=== PATIENT | female | born 1990 | race African-American/Black ===

== ENCOUNTER 2021-07-23 23:03 | Emergency (ER) | payer BC ==
[~2021-07-23] VITALS: Ht 175.3 cm; Wt 114.0 kg
[2021-07-24] MEDS ORDERED: ONDANSETRON HCL 4MG/2ML INJ IV ONE (00:30)
[2021-07-24] MEDS ORDERED: SODIUM CHLORIDE 0.9% 1,000 ML IV ONE (00:30)
[2021-07-24 02:00] LABS: *AMPHETAMINES SCREEN URINE NEGATIVE (NEGATIVE); *BARBITURATES SCREEN URINE NEGATIVE (NEGATIVE); *BENZODIAZEPINES SCREEN URINE NEGATIVE (NEGATIVE); *COCAINE SCREEN URINE NEGATIVE (NEGATIVE); METHADONE URINE SCREEN NEGATIVE (NEGATIVE); OPIATES URINE SCREEN NEGATIVE (NEGATIVE)
[2021-07-24 02:01] LABS: PHENCYCLIDINE URINE SCREEN NEGATIVE (NEGATIVE)
[2021-07-24 02:14] LABS: CANNABINOID URINE SCREEN PRESUMTIVE POSITIVE (NEGATIVE)
[2021-07-24] MEDS ORDERED: ONDA4TAB5 MT (02:31)
[2021-07-24 02:35] VITALS: BP 117/72
== END 2021-07-24 02:55 | disposition home or self-care (01) ==
LOC: ER 23:03
DX: T40.711A Poisoning by cannabis, accidental (unintentional), initial encounter (principal); I10 Essential (primary) hypertension; Z98.51 Tubal ligation status; Y92.9 Unspecified place or not applicable
CPT/HCPCS: 80305; 81025; 96361; 96374; 99283; J2405; J7030